=== PATIENT | female | born 1945 | race Caucasian/White ===

== ENCOUNTER → 2016-06-27 | Outpatient (CLI) | payer OTHER ==
[~2016-06-27] MED LIST: ALPRAZOLAM 0.0.25 M1 PO; ALTOPREV40 MG PO; AMITRIPTYLINE H25 M2 GT; ATENOLOL 25 MG25 M1 PO; DARVOCET-N 1001 EACH PO; LONOX PO; NULEV; PHENERGAN 25 MG25 M1 PO; PREMPHASE 0.621 EAC1 PO; ROBAXIN 750 MG750 M1 PO; TIZANIDINE HCL 22 M1 PO; ULTRAM 50MG TAB50 MG PO; VANCOCIN 250 M250 M1 PO; ZOFRAN 4 MG ORAL4 MG PO
== END ==
LOC: RAD 05:09 → BC 09:32 → RAD 10:22
DX: Z12.31 Encounter for screening mammogram for malignant neoplasm of breast (principal)

== ENCOUNTER → 2017-08-06 | Outpatient (CLI) | payer OTHER | LOC: RAD 08-05 01:30 → NUC 01:30 | DX: Z12.31 Encounter for screening mammogram for malignant neoplasm of breast (principal); M85.89 Other specified disorders of bone density and structure, multiple sites; M81.0 Age-related osteoporosis without current pathological fracture; Z78.0 Asymptomatic menopausal state ==

== ENCOUNTER → 2018-09-19 | Outpatient (CLI) | payer OTHER | LOC: RAD 01:55 | DX: Z12.31 Encounter for screening mammogram for malignant neoplasm of breast (principal) ==

== ENCOUNTER → 2019-09-29 | Outpatient (CLI) | payer OTHER | LOC: BC 13:11 | PROVIDERS: ATTEND Obstetrics & Gynecology | DX: Z12.31 Encounter for screening mammogram for malignant neoplasm of breast (principal); N64.89 Other specified disorders of breast ==